=== PATIENT | female | born 1975 | race Caucasian/White ===

== ENCOUNTER 2018-07-09 16:18 | Outpatient (CLI) | END 2018-07-09 16:35 | disposition short-term general hospital (02) | LOC: AMBL 16:18 | PROVIDERS: ATTEND Internal Medicine | DX: R55 Syncope and collapse (principal); R41.82 Altered mental status, unspecified; R47.89 Other speech disturbances; R00.0 Tachycardia, unspecified; S00.83XA Contusion of other part of head, initial encounter; S40.022A Contusion of left upper arm, initial encounter; S40.021A Contusion of right upper arm, initial encounter; R40.2411 Glasgow coma scale score 13-15, in the field [EMT or ambulance] ==